=== PATIENT | male | born 1975 | race Caucasian/White ===

== ENCOUNTER 2018-07-12 15:17 | Inpatient (IN) | payer OTHER ==
[2018-07-12 17:49] VITALS: BMI 24.3
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
[2018-07-12] MEDS ORDERED: MENTHOL/PHENOL 1 EACH UD MM PRN (20:11)
[2018-07-12] MEDS ORDERED: MAG HYDROX/AL HYDROX/SIMETH 30 ML UNIT-DOSE CUP PO PRN (20:11)
[2018-07-12] MEDS ORDERED: chlordiazePOXIDE HCL 25 MG CAPSULE PO PRN (20:11)
[2018-07-12] MEDS ORDERED: MAGNESIUM HYDROX 2400MG/30ML ORAL SUSPENSION 30 ML CUP PO PRN (20:11)
[2018-07-12] MEDS ORDERED: ACETAMINOPHEN 325 MG TABLET (FP) PO PRN (20:11)
[2018-07-12] MEDS ORDERED: guaiFENesin/D-METHORPHAN HB 10 ML UNIT-DOSE CUPS PO PRN (20:11)
[2018-07-12] MEDS ORDERED: MAGNESIUM CITRATE 300 ML BOTTLE PO PRN (20:11)
[2018-07-12] MEDS ORDERED: hydrOXYzine PAMOATE 50 MG CAPSULE (FP) PO PRN (20:11)
[2018-07-12] MEDS ORDERED: P-EPHED 60MG/TRIPROLIDI 2.5MG TABLET PO PRN (20:11)
[2018-07-12] MEDS ORDERED: IBUPROFEN 400 MG TABLET (FP) PO PRN (20:11)
[2018-07-12] MEDS: THIAMINE HCL 100 MG TABLET (FP) PO SCH (21:55)
[2018-07-12] MEDS: MELATONIN 5 MG TABLETS PO PRN (21:57)
[2018-07-12] MEDS: chlordiazePOXIDE HCL 25 MG CAPSULE PO SCH (22:00)
[2018-07-13] MEDS: chlordiazePOXIDE HCL 25 MG CAPSULE PO SCH ×4 (05:15→22:30)
[2018-07-13] MEDS ORDERED: METHADONE 80 MG, METHADONE 10 MG PO ONE (09:30)
[2018-07-13] MEDS ORDERED: METHADONE HCL 10 MG TABLET PO ONE (10:00)
[2018-07-13] MEDS: PRENATAL VITAMINS W/ FOLIC ACID TABLET (FP) PO SCH (10:25)
[2018-07-13] MEDS ORDERED: METHADONE HCL 40 MG DISPERSABLE TABLET ONE (10:25)
[2018-07-13] MEDS ORDERED: METHADONE HCL 10 MG TABLET ONE (10:25)
[2018-07-13 10:58] LABS: HEMATOCRIT 36.9 % (35.4-49); HEMOGLOBIN 11.6 GM/dL (11.7-16.9); MCH 26.3 pg (25.7-33.7); MCHC 31.5 g/dl (32.0-35.9); MEAN CELL VOLUME 83.5 fl (80-96); MEAN PLT VOLUME 7.6 fl (7.5-11.1); PLATELET COUNT 236 K/MM3 (134-434); RBC 4.42 M/mm3 (4.00-5.60); RDW 15.5 % (11.9-15.9); WHITE BLOOD COUNT 6.4 K/mm3 (4.0-10.0)
--- NOTE | 2018-07-13 11:03 | PN ---
S CIWA - CIWA Score Nausea/Vomitin-Mild Nausea/No Vomiting Muscle Tremors: 4-Moderate,w/Arms Extend Anxiety: 4-Mod. Anxious/Guarded Agitation: 2 Paroxysmal Sweats: 1-Minimal Palms Moist Orientation: 0-Oriented Tacttile Disturbances: 0-None Auditory Disturbances: 0-None Visual Disturbances: 0-None Headache: 1-Very Mild CIWA-Ar Total Score: 13 [facility] Progress Note (SOAP) Subjective: anxiety restlessness tremor sweat headaches Objective: 07/13/18 11:03 Vital Signs Temperature 97.8 F 07/13/18 09:26 Pulse Rate 63 07/13/18 09:26 Respiratory Rate 18 07/13/18 09:26 Blood Pressure 103/62 07/13/18 09:26 O2 Sat by Pulse Oximetry (%) 07/13/18 11:03 lab pending Assessment: 07/13/18 11:04 withdrawal sx Plan: continue detox
[2018-07-13 11:12] LABS: ALBUMIN 3.3 g/dl (3.4-5.0); ALK PHOS 137 U/L (45-117); ANION GAP 7 MMOL/L (8-16); BILIRUBIN,TOTAL 0.2 mg/dL (0.2-1); BLOOD UREA NITROGEN 17 mg/dL (7-18); CALCIUM 8.4 mg/dL (8.5-10.1); CHLORIDE 105 mmol/L (98-107); CO2 29 mmol/L (21-32); CREATININE 0.9 mg/dL (0.55-1.3); GLUCOSE,RANDOM 96 mg/dL (74-106); POTASSIUM 4.1 mmol/L (3.5-5.1); SGOT/AST 60 U/L (15-37); SGPT/ALT 43 U/L (13-61); SODIUM 141 mmol/L (136-145); TOT PROT 6.8 g/dl (6.4-8.2)
[2018-07-13] MEDS ORDERED: ONDANSETRON *ODT* 4 MG TABLET SL ONE (13:30)
[2018-07-13] MEDS: MELATONIN 5 MG TABLETS PO PRN (22:30)
[2018-07-13] MEDS: THIAMINE HCL 100 MG TABLET (FP) PO SCH (22:30)
[2018-07-14] MEDS ORDERED: METHADONE HCL 10 MG TABLET ONE ×2 (04:50→08:59)
[2018-07-14] MEDS ORDERED: METHADONE HCL 40 MG DISPERSABLE TABLET ONE ×2 (04:50→08:59)
[2018-07-14] MEDS: chlordiazePOXIDE HCL 25 MG CAPSULE PO SCH ×3 (05:25→17:32)
[2018-07-14] MEDS ORDERED: METHADONE HCL 10 MG TABLET PO SCH (06:00)
[2018-07-14] MEDS ORDERED: METHADONE 80 MG, METHADONE 10 MG PO SCH (06:00)
[2018-07-14] MEDS: PRENATAL VITAMINS W/ FOLIC ACID TABLET (FP) PO SCH (10:07)
[2018-07-14] MEDS: METHADONE 80 MG, METHADONE 10 MG PO SCH (10:09)
--- NOTE | 2018-07-14 14:32 | PN ---
[facility] CIWA - CIWA Score Nausea/Vomitin-Mild Nausea/No Vomiting Muscle Tremors: 3 Anxiety: 2 Agitation: 2 Paroxysmal Sweats: 1-Minimal Palms Moist Orientation: 0-Oriented Tacttile Disturbances: 0-None Auditory Disturbances: 0-None Visual Disturbances: 0-None Headache: 2-Mild CIWA-Ar Total Score: 11 S Progress Note (SOAP) Subjective: tremor sweat restlessness trouble sleep at night Objective: 07/14/18 14:28 Vital Signs Temperature 97 F L 07/14/18 13:26 Pulse Rate 57 L 07/14/18 13:26 Respiratory Rate 18 07/14/18 13:26 Blood Pressure 106/64 07/14/18 13:26 O2 Sat by Pulse Oximetry (%) Vital Signs Laboratory Last Values WBC 6.4 K/mm3 (4.0-10.0) 07/13/18 07:30 RBC 4.42 M/mm3 (4.00-5.60) 07/13/18 07:30 Hgb 11.6 GM/dL (11.7-16.9) L 07/13/18 07:30 Hct 36.9 % (35.4-49) 07/13/18 07:30 MCV 83.5 fl (80-96) 07/13/18 07:30 MCH 26.3 pg (25.7-33.7) 07/13/18 07:30 MCHC 31.5 g/dl (32.0-35.9) L 07/13/18 07:30 RDW 15.5 % (11.9-15.9) 07/13/18 07:30 Plt Count 236 K/MM3 (134-434) 07/13/18 07:30 MPV 7.6 fl (7.5-11.1) 07/13/18 07:30 Sodium 141 mmol/L (136-145) 07/13/18 07:30 Potassium 4.1 mmol/L (3.5-5.1) 07/13/18 07:30 Chloride 105 mmol/L (98-107) 07/13/18 07:30 Carbon Dioxide 29 mmol/L (21-32) 07/13/18 07:30 Anion Gap 7 MMOL/L (8-16) L 07/13/18 07:30 BUN 17 mg/dL (7-18) 07/13/18 07:30 Creatinine 0.9 mg/dL (0.55-1.3) 07/13/18 07:30 Creat Clearance w eGFR > 60 (>60) 07/13/18 07:30 Random Glucose 96 mg/dL (74-106) 07/13/18 07:30 Calcium 8.4 mg/dL (8.5-10.1) L 07/13/18 07:30 Total Bilirubin 0.2 mg/dL (0.2-1) 07/13/18 07:30 AST 60 U/L (15-37) H 07/13/18 07:30 ALT 43 U/L (13-61) 07/13/18 07:30 Alkaline Phosphatase 137 U/L (45-117) H 07/13/18 07:30 Total Protein 6.8 g/dl (6.4-8.2) 07/13/18 07:30 Albumin 3.3 g/dl (3.4-5.0) L 07/13/18 07:30 RPR Titer Nonreactive (NONREACTIVE) 07/13/18 07:30 lab noted Assessment: 07/14/18 14:31 withdrawal sx Plan: continue detox
[2018-07-14] MEDS: chlordiazePOXIDE 5 MG CAPSULE PO SCH (22:14)
[2018-07-14] MEDS: THIAMINE HCL 100 MG TABLET (FP) PO SCH (22:14)
[2018-07-14] MEDS: MELATONIN 5 MG TABLETS PO PRN (22:15)
[2018-07-15] MEDS ORDERED: METHADONE HCL 10 MG TABLET ONE ×2 (04:42→09:15)
[2018-07-15] MEDS ORDERED: METHADONE HCL 40 MG DISPERSABLE TABLET ONE ×2 (04:42→09:15)
[2018-07-15] MEDS: chlordiazePOXIDE 5 MG CAPSULE PO SCH ×2 (07:34→10:23)
--- NOTE | 2018-07-15 09:54 | PN ---
[facility] Progress Note (SOAP) Subjective: I feel better , I want to leave today Objective: 07/15/18 09:52 Vital Signs Temperature 97 F L 07/15/18 06:17 Pulse Rate 54 L 07/15/18 06:17 Respiratory Rate 16 07/15/18 06:17 Blood Pressure 114/65 07/15/18 06:17 O2 Sat by Pulse Oximetry (%) Laboratory Tests 07/13/18 07/13/18 07/13/18 07:30 07:30 07:30 WBC 6.4 RBC 4.42 Hgb 11.6 L Hct 36.9 MCV 83.5 MCH 26.3 MCHC 31.5 L RDW 15.5 Plt Count 236 MPV 7.6 Sodium 141 Potassium 4.1 Chloride 105 Carbon Dioxide 29 Anion Gap 7 L BUN 17 Creatinine 0.9 Creat Clearance w eGFR > 60 Random Glucose 96 Calcium 8.4 L Total Bilirubin 0.2 AST 60 H ALT 43 Alkaline Phosphatase 137 H Total Protein 6.8 Albumin 3.3 L RPR Titer Nonreactive pt aox3 in nad ambulating Assessment: 07/15/18 09:53 withdrawal sx's improved -pt want early d/c Plan: d/c today cont. hydration obtain out pt treatment program
[2018-07-15] MEDS: PRENATAL VITAMINS W/ FOLIC ACID TABLET (FP) PO SCH (10:23)
[2018-07-15] MEDS: METHADONE 80 MG, METHADONE 10 MG PO SCH (10:23)
--- NOTE | 2018-07-15 12:23 | DS ---
[facility] Detox Discharge Summary Admission Date: 07/12/18 Discharge Date: 07/15/18 - History Present History: Alcohol Dependence, MMTP - Physical Exam Results Vital Signs: Vital Signs Temperature 98.6 F 07/15/18 10:55 Pulse Rate 66 07/15/18 10:55 Respiratory Rate 20 07/15/18 10:55 Blood Pressure 114/63 07/15/18 10:55 O2 Sat by Pulse Oximetry (%) Pertinent Admission Physical Exam Findings: PATIENT COMPLETED DETOX WITHOUT ADVERSE EVENT. PATIENT ACCEPTED REFERRAL TO REHAB AT [facility]. PATIENT ENCOURAGED TO COMPLETE REHAB TO PREVENT RELAPSE. PATIENT CLINICALLY STABLE. DENIES SI/HI. D/C INSTRUCTION PROVIDED TO PATIENT BY STAFF. - Treatment Hospital Course: Detox Protocol Followed, Detoxed Safely, Responded well, Discharged Condition Good, Rehab Referral Accepted - Medication Discharge Medications: Ambulatory Orders Methadone [Dolophine -] 90 mg PO DAILY 07/13/18 - Diagnosis (1) Chronic alcohol use Current Visit: Yes Status: Chronic (2) Opioid dependence on agonist therapy Current Visit: Yes Status: Chronic - AMA Did Patient Leave Against Medical Advice: No
[2018-07-15 13:19] VITALS: BP 110/74; PULSE 49; TEMP 96.5
[2018-07-15] MEDS ORDERED: chlordiazePOXIDE HCL 10 MG CAPSULE PO SCH (23:00)
== END 2018-07-15 13:55 | disposition other institution (70) | DRG 773 ==
LOC: YASAS 15:17 → Y3N 20:18
PROC: HZ2ZZZZ Detoxification Services for Substance Abuse Treatment (ICD-10-PCS; principal; 2018-07-12)
DX: F11.23 Opioid dependence with withdrawal (principal); F10.230 Alcohol dependence with withdrawal, uncomplicated; F13.230 Sedative, hypnotic or anxiolytic dependence with withdrawal, uncomplicated; F14.20 Cocaine dependence, uncomplicated; F12.20 Cannabis dependence, uncomplicated; F17.210 Nicotine dependence, cigarettes, uncomplicated
CPT/HCPCS: 36415; 80053; 85027; 86593